=== PATIENT | female | born 1965 | race Caucasian/White ===

== ENCOUNTER 2018-01-11 14:31 | Outpatient (CLI) | payer OTHER, SELFPAY ==
[2018-01-11 16:25] LABS: TSH (W/Ref FT4) 3.29 uIU/mL (0.358-3.74)
== END 2018-01-11 14:32 ==
PROVIDERS: PCP Family Medicine; Visit Provider Nurse Practitioner Family
DX: N92.0 Excessive and frequent menstruation with regular cycle (principal)
CPT/HCPCS: 36415; 84443

== ENCOUNTER 2018-01-11 14:56 | Outpatient (REF) | payer OTHER, SELFPAY ==
--- NOTE | 2018-01-11 14:00 | PAPFT_PTH ---
PATIENT: NOAH SHEFFIELD LOC: [facility] U#:[id number] AGE/SX: 52/F ROOM: RE01/11/[address]: MING Alonso : 1965 BED: DIS: 01/11/2018 SPEC #: [id number] RECD: 01/11/18 16:23 STATUS: CATHY REKelli #: [id number] SU: 01/11/18 14:[address]: Crystal Sanon DEPT: ON LICENSE OF [facility] Cytology RECD BY: Nicky English ENTERED: 01/11/18 16:23 SP TYPE: PAPFT ANDRÉS DR: Javier Alarcon Tissues: 1 - CX/ENDOCX FOR PAP SMEARS Procedures: PAP THIN PREP/UVM Screening HPV DNA PROBE Comments: [id number]
== END 2018-01-11 14:57 ==
LOC: LBN 14:56
PROVIDERS: PCP Family Medicine; Visit Provider Nurse Practitioner Family
DX: Z12.4 Encounter for screening for malignant neoplasm of cervix (principal); Z11.51 Encounter for screening for human papillomavirus (HPV)
CPT/HCPCS: 88142; 87624

== ENCOUNTER 2018-02-06 01:46 | Outpatient (CLI) | payer OTHER, SELFPAY ==
--- NOTE | 2018-02-06 12:29 | DI.REPORT_ITS ---
SYMPTOMS/DIAGNOSIS: SCREENING, Z12.31 MAMMOGRAMS: Mammograms were interpreted according to the usual protocol including computer analysis with CAD system, tomosynthesis and C view imaging. The breast tissue is heterogeneously radiodense, which lowers the sensitivity of the study. There is no dominant mass. There are no suspicious calcifications and there has been no significant interval change when compared with prior images. SUMMARY: No evidence of malignancy, category 1. Yearly screening mammography is recommended. Breast density category D. SA ASSESSMENT OF FINDINGS: Negative. Category 1. Patient will receive a letter notifying them of these results. BI-RADS category D. The breasts are extremely dense, which lowers the sensitivity of mammography.
--- NOTE | 2018-02-06 12:29 | DI.REPORT_ITS ---
SYMPTOMS/DIAGNOSIS: NEW ONSET MENORRHAGIA AND DYSMENORRHEA, N92.0 PELVIC ULTRASOUND: A transabdominal and transvaginal examination was carried out according to the usual protocol. The uterus measures 12.4 cm in length, 6.8 cm in height and 8.0 cm in width with an endometrial stripe thickness of 7.1 mm. There is a 4.9 x 3.8 x 3.8 cm posterior fundal fibroid and a tiny second fundal fibroid is demonstrated. In addition, there is an apparent lower uterine segment cervical fibroid measuring 4.4 x 2.8 x 4.1 cm. The left ovary measures 3.6 x 2.5 x 3.7 cm. The right ovary was not seen. The kidneys are unremarkable. SUMMARY: Heterogeneous echogenicity is noted in the uterus and two fibroids are demonstrated. The examination is otherwise unremarkable with note made of nonvisualization of the left ovary.
== END 2018-02-06 01:47 ==
PROVIDERS: PCP Family Medicine; Visit Provider Nurse Practitioner Family
DX: Z12.31 Encounter for screening mammogram for malignant neoplasm of breast (principal); N92.0 Excessive and frequent menstruation with regular cycle; N94.6 Dysmenorrhea, unspecified
CPT/HCPCS: 77063; 77067; 76830; 76856